=== PATIENT | female | born 1960 | race Caucasian/White ===

== ENCOUNTER 2021-01-19 22:37 | Emergency (ER) | payer OTHER ==
[~2021-01-19] VITALS: Ht 152.4 cm; Wt 90.9 kg
--- NOTE | 2021-01-20 00:18 | RAD ---
EXAM: LEFT FOOT 3 VIEWS. HISTORY: Left foot pain. COMPARISON: None. FINDINGS: Three views of the left foot are obtained. There is a nondisplaced fracture 1.2 cm distal to the base of the fifth metatarsal. Alignment is norm al. Joint spaces are maintained. There is a moderate plantar calcaneal spur. IMPRESSION: 1. Nondisplaced fracture at the base of the fifth metatarsal. Electronically signed by: Bossman Duran MD (01/20/2021 12:15 AM) [facility]
[2021-01-20 00:48] VITALS: BP 136/86
--- NOTE | 2021-01-20 00:50 | PHYS DOC ---
Past History Past Surgical History: Appendectomy, Hysterectomy, Oophorectomy Alcohol Use: None General Adult EDM: Chief Complaint: LOWER EXT PAIN HPI: HPI: 60-year-old female presents with left foot pain. The patient was walking and she rolled her ankle. She was in training in the car and rolled it again. The pain is not in her ankle but more in the midfoot. She is able to walk but is painful. She denies any other injuries at this time. Review of Systems: Review of Systems: Constitutional: Denies fever or chills Eyes: Denies change in visual acuity HENT: Denies nasal congestion or sore throat Respiratory: Denies cough or shortness of breath Cardiovascular: Denies chest pain or edema GI: Denies abdominal pain, nausea, vomiting, bloody stools or diarrhea : Denies dysuria Musculoskeletal: Left foot pain Integument: Denies rash Neurologic: Denies headache, focal weakness or sensory changes Endocrine: Denies polyuria or polydipsia Lymphatic: Denies swollen glands Psychiatric: Denies depression or anxiety Allergies: Allergies: Allergies Coded Allergies Type Severity Reaction Last Updated Verified Penicillins Allergy Unknown 01/19/21 Yes diazepam Allergy Unknown 01/19/21 Yes Physical Exam: PE: Constitutional: Well developed, well nourished, no acute distress, non-toxic appearance. [] HENT: Normocephalic, atraumatic, bilateral external ears normal, oropharynx moist, no oral exudates, nose normal. [] Eyes: PERRLA, EOMI, conjunctiva normal, no discharge. [] Neck: Normal range of motion, no tenderness, supple, no stridor. [] Cardiovascular:Heart rate regular rhythm, no murmur [] Lungs & Thorax: Bilateral breath sounds clear to auscultation [] Abdomen: Bowel sounds normal, soft, no tenderness, no masses, no pulsatile masses. [] Skin: Warm, dry, no erythema, no rash. [] Back: No tenderness, no CVA tenderness. [] Extremities: Tenderness over the middle and lateral left foot, mild swelling, no obvious deformity [] Neurologic: Alert and oriented X 3, normal motor function, normal sensory function, no focal deficits noted. [] Psychologic: Affect normal, judgement normal, mood normal. [] Current Patient Data: Vital Signs: Vital Signs Date Time Temp Pulse Resp B/P (MAP) Pulse Ox O2 Delivery O2 Flow Rate FiO2 01/19/21 22:45 98.7 90 16 148/99 96 Room Air EKG: EKG: [] Radiology/Procedures: Radiology/Procedures: [] Impressions: EXAM: LEFT FOOT 3 VIEWS. HISTORY: Left foot pain. COMPARISON: None. FINDINGS: Three views of the left foot are obtained. There is a nondisplaced fracture 1.2 cm distal to the base of the fifth metatarsal. Alignment is normal. Joint spaces are maintained. There is a moderate plantar calcaneal spur. IMPRESSION: 1. Nondisplaced fracture at the base of the fifth metatarsal. Electronically signed by: Bossman Duran MD (01/20/2021 12:15 AM) [facility] DICTATED AND SIGNED BY: MILADYS DURAN MD DATE: 01/20/21 0014 CC: SARAI COELHO DO; PCP,NO ~MTH0 0 Heart Score: C/O Chest Pain: N/A Risk Factors: Risk Factors: DM, Current or recent (<one month) smoker, HTN, HLP, family his tory of CAD, obesity. Risk Scores: Score 0 - 3: 2.5% MACE over next 6 weeks - Discharge Home Score 4 - 6: 20.3% MACE over next 6 weeks - Admit for Clinical Observation Score 7 - 10: 72.7% MACE over next 6 weeks - Early Invasive Strategies Course & Med Decision Making: Course & Med Decision Making Pertinent Labs and Imaging studies reviewed. (See chart for details) The patient does have a fracture of the base of the fifth metatarsal of the left foot. We will place her in a postop shoe and she will follow with her orthopedic doctor back home in [place] on Thursday. She is stable for discharge at this time. [] Dragon Disclaimer: Jameson Disclaimer: This electronic medical record was generated, in whole or in part, using a voice recognition dictation system. Departure Departure: Impression: Primary Impression: Fracture of metatarsal Qualified Codes: S92.355A - Nondisplaced fracture of fifth metatarsal bone, left foot, initial encounter for closed fracture Disposition: HOME / SELF CARE / HOMELESS Condition: STABLE Referrals: PCP,NO (PCP) Patient Instructions: Metatarsal Fracture with [facility] SARAI COELHO DO Jan 20, 2021 00:49
== END 2021-01-20 01:00 | disposition home or self-care (01) ==
LOC: ER 22:37
DX: S92.355A Nondisplaced fracture of fifth metatarsal bone, left foot, initial encounter for closed fracture (principal); Z88.0 Allergy status to penicillin; Z88.8 Allergy status to other drugs, medicaments and biological substances; X50.9XXA Other and unspecified overexertion or strenuous movements or postures, initial encounter; Y93.01 Activity, walking, marching and hiking; Y92.89 Other specified places as the place of occurrence of the external cause; Y99.8 Other external cause status
CPT/HCPCS: 73630; 99283